=== PATIENT | female | born 1990 | race Caucasian/White ===

== ENCOUNTER → 2024-04-30 | Outpatient (CLI) | payer BC ==
[2024-04-30 13:35] LABS: HEMATOCRIT 36.5 % (36.0-47.0); HEMOGLOBIN 12.2 g/dl (12.0-15.5); MEAN CORPUSCULAR HEMOGLOBIN 28.8 pg (27.0-33.0); MEAN CORPUSCULAR HGB CONC 33.4 g/dl (32.0-36.5); MEAN CORPUSCULAR VOLUME 86.3 fl (80.0-96.0); PLATELET COUNT, AUTOMATED 336 10^3/uL (150-450); RED BLOOD COUNT 4.23 10^6/uL (4.00-5.40)
[2024-04-30 13:41] LABS: LDH LACTATE DEHYDROGENASE 140 U/L (120-246)
[2024-04-30 13:42] LABS: ALT/SGPT 13 U/L (7.0-40); AST/SGOT < 8 U/L (<34); BILIRUBIN,TOTAL 0.6 MG/DL (0.3-1.2); GLOMERULAR FILTRATION RATE > 60.0 (>60)
[2024-04-30 14:13] LABS: CREATININE,RANDOM URINE 27.2 MG/DL; TOTAL PROTEIN,RANDOM URINE < 6.0 MG/DL (0.0-14.0)
[2024-04-30 14:16] LABS: HIV 1&2 SCREEN NEGATIVE (NEGATIVE)
[2024-04-30 14:24] LABS: HEPATITIS C VIRUS ABY INDEX 0.13 INDEX (<0.8)
[2024-04-30 14:28] LABS: URIC ACID 3.3 MG/DL (3.1-7.8)
[2024-04-30 14:57] LABS: Trichomonas vaginalis (AMP) NOT DETECTED (NEGATIVE)
[2024-04-30 15:21] LABS: GC DNA AMPLIFICATION NEGATIVE (NEGATIVE)
== END ==
LOC: M PLALAB 09:50
PROVIDERS: ATTEND Nurse Practitioner Family
DX: Z34.80 Encounter for supervision of other normal pregnancy, unspecified trimester (principal)

== ENCOUNTER → 2024-05-15 | Outpatient (CLI) | payer BC | LOC: M PLALAB 08:28 | PROVIDERS: ATTEND Nurse Practitioner Family | DX: Z34.80 Encounter for supervision of other normal pregnancy, unspecified trimester (principal) ==

== ENCOUNTER → 2024-07-15 | Outpatient (CLI) | payer BC | LOC: M WHC 09:54 | PROVIDERS: ATTEND Nurse Practitioner Family | DX: Z34.02 Encounter for supervision of normal first pregnancy, second trimester (principal) ==

== ENCOUNTER 2024-10-23 20:51 | Outpatient (CLI) | payer BC ==
[~2024-10-23] VITALS: Ht 162.6 cm; Wt 101.7 kg
[2024-10-23] MEDS ORDERED: OMEP10CASR PO (21:02)
[2024-10-23] MEDS ORDERED: PRENTAB9 PO (21:02)
[2024-10-23 21:03] VITALS: BP 130/71
[2024-10-23] MEDS ORDERED: HOME MED LIST COMPLETE! XX SCH (21:05)
== END 2024-10-23 21:42 | disposition home or self-care (01) ==
LOC: M LDO 20:51
PROVIDERS: ATTEND Advanced Practice Midwife
DX: O36.8130 Decreased fetal movements, third trimester, not applicable or unspecified (principal); O99.343 Other mental disorders complicating pregnancy, third trimester; F32.A Depression, unspecified; Z3A.36 36 weeks gestation of pregnancy
CPT/HCPCS: 59025; G0463

== ENCOUNTER → 2024-10-24 | Outpatient (REF) | payer BC ==
[~2024-10-24] MED LIST: OMEP10CASR PO; PRENTAB9 PO
== END ==
LOC: M LAB REF 12:44
PROVIDERS: ATTEND Obstetrics & Gynecology
DX: Z36.85 Encounter for antenatal screening for Streptococcus B (principal); Z3A.36 36 weeks gestation of pregnancy

== ENCOUNTER 2024-11-20 15:31 | Inpatient (IN) | payer BC ==
[~2024-11-20] VITALS: Ht 162.6 cm; Wt 106.1 kg
[2024-11-20 15:53] VITALS: BP 140/76
[2024-11-20 16:04] VITALS: BP 132/70
[2024-11-20 16:16] VITALS: BP 144/81
[2024-11-20 16:27] VITALS: BP 130/72
[2024-11-20 16:38] LABS: PLATELET COUNT, AUTOMATED 254 10^3/uL (150-450)
[2024-11-20 16:47] VITALS: BP 131/78
[2024-11-20 16:59] LABS: LDH LACTATE DEHYDROGENASE 167 U/L (120-246)
[2024-11-20 17:00] LABS: ALT/SGPT 19 U/L (7.0-40); AST/SGOT 18 U/L (<34); CREATININE FOR GFR 0.47 MG/DL (0.55-1.30); GLOMERULAR FILTRATION RATE > 90.0 (>60)
[2024-11-20 17:07] LABS: TOTAL PROTEIN,RANDOM URINE 13.8 MG/DL (0.0-14.0)
[2024-11-20 17:35] LABS: HEPATITIS C VIRUS ABY INDEX < 0.02 INDEX (<0.8)
[2024-11-20 17:37] LABS: HIV 1&2 SCREEN NEGATIVE (NEGATIVE)
[2024-11-20] MEDS ORDERED: OXYTOCIN INJ 10UNITS/ML 1ML VIAL IM PRN (18:15)
[2024-11-20] MEDS ORDERED: CARBOPROST TROMETHAMINE 250 MCG/ML AMP IM PRN (18:15)
[2024-11-20] MEDS ORDERED: LIDOCAINE 1% MDV 20 ML VIAL INFIL PRN (18:15)
[2024-11-20] MEDS ORDERED: OXYTOCIN DRIP 30 UNITS in IV 1 EA IV PRN (18:15)
[2024-11-20] MEDS ORDERED: TRANEXAMIC ACID INJection 1,000 MG in NS 100 ML IV PRN (18:15)
[2024-11-20 19:21] VITALS: BP 137/63
[2024-11-20] MEDS: miSOPROStol 50 MCG 1/2 TABLET PO SCH (19:23)
[2024-11-20] MEDS ORDERED: PEN G POT 3,000,000 UNIT/50 ML 3,000,000 UNIT in IV 1 EA IV SCH (22:15)
[2024-11-21] VITALS (43 sets, daily range): BP systolic 93–168; BP diastolic 51–93
[2024-11-21] MEDS ORDERED: miSOPROStol 50 MCG 1/2 TABLET As Ordered ONE (03:30)
[2024-11-21] MEDS: OXYTOCIN DRIP 30 UNITS in IV 1 EA IV SCH (12:21)
[2024-11-21] MEDS: PENICILLIN G POTASSIUM 5 MU IV 5 MU in DEXTROSE 5% (D5W) MINI-BAG PLU 100 ML IV STA ×2 (13:40→13:41)
[2024-11-21] MEDS: PEN G POT 3,000,000 UNIT/50 ML 3,000,000 UNIT in IV 1 EA IV SCH (17:40)
[2024-11-21] MEDS: LR 1,000 ML IV SCH (17:45)
[2024-11-21] MEDS ORDERED: NALOXONE INJ 0.4 MG/1 ML VIAL IV PRN (21:25)
[2024-11-21] MEDS ORDERED: diphenhydrAMINE 50 MG/ML VIAL IV PRN (21:25)
[2024-11-21] MEDS ORDERED: EPIDURAL/PCA KEYS XX PRN (21:25)
[2024-11-21] MEDS: FENTANYL/ROPIVACAINE/NACL BAG 100 ML EPIDURAL SCH (21:26)
[2024-11-22] VITALS (27 sets, daily range): BP systolic 88–138; BP diastolic 49–81; TEMP 97.3; O2SAT 95–97
[2024-11-22] MEDS: LR 500 ML IV PRN (03:36)
[2024-11-22] MEDS: ONDANSETRON 4MG 2ML VIAL IV PRN (08:20)
[2024-11-22] MEDS: BICITRA 30 ML SOLN UDC PO ONE (09:12)
[2024-11-22] MEDS: ceFAZolin SODIUM 2 GM in DEXTROSE 5% (D5W) ADV/MINI-BAG 50 ML IV ONE (09:12)
[2024-11-22] MEDS: AZITHROMYCIN INJ 500 MG, VIAL MATE ADAPTER 1 EACH in NS 250 ML IV ONE (09:12)
[2024-11-22] MEDS ORDERED: ONDANSETRON 4MG 2ML VIAL As Ordered ONE (09:47)
[2024-11-22] MEDS ORDERED: dexAMETHasone 4 MG/ML 1 ML VIAL As Ordered ONE (09:47)
[2024-11-22] MEDS ORDERED: MORPHINE PRES-FREE INJ 10 MG/10 ML VIAL As Ordered ONE (09:48)
[2024-11-22] MEDS ORDERED: LIDOCAINE 2% W/EPINEPHrine 20 ML VIAL **PRES FREE As Ordered ONE (09:49)
[2024-11-22] MEDS ORDERED: ACETAMINOPHEN 1000MG/100ML IV BAG As Ordered ONE (09:50)
[2024-11-22] MEDS ORDERED: KETOROLAC 30 MG/ML 1 ML VIAL As Ordered ONE (10:41)
[2024-11-22] MEDS ORDERED: OXYTOCIN 30UNITS IN 0.9% NaCl 500ML IV BAG As Ordered ONE (10:54)
[2024-11-22] MEDS ORDERED: OXYTOCIN INJ 10UNITS/ML 1ML VIAL As Ordered ONE (10:54)
[2024-11-22 10:57] LABS: CORD GAS ABE V -2.5; CORD GAS HCO3 V 22.1 MMOL/L; CORD GAS O2 SAT V 79.4 %; CORD GAS PCO2 V 38.3 mmHg; CORD GAS PH V 7.38 UNITS; CORD GAS PO2 V 36.0 mmHg; CORD GAS SBC V 21.9 MMOL/L; CORD GAS TCO2 V 23.3 MMOL/L
[2024-11-22 10:59] LABS: CORD GAS ABE A -1.7; CORD GAS HCO3 A 26.1 MMOL/L; CORD GAS O2 SAT A 65.4 %; CORD GAS PCO2 A 56.4 mmHg; CORD GAS PH A 7.283 UNITS; CORD GAS PO2 A 29.3 mmHg; CORD GAS SBC A 22.2 MMOL/L; CORD GAS TCO2 A 27.8 MMOL/L
[2024-11-22] MEDS ORDERED: ANUSOL HC CREAM 30 GM TOP PRN (11:10)
[2024-11-22] MEDS ORDERED: PERCOCET 5MG/325MG TAB PO PRN ×2 (11:10)
[2024-11-22] MEDS ORDERED: METHYLERGONOVINE MALEATE 0.2 MG/ML 1 ML VIAL IM PRN (11:10)
[2024-11-22] MEDS ORDERED: CALCIUM CARBONATE 500 MG CHEW U/D PO PRN (11:10)
[2024-11-22] MEDS ORDERED: MORPHINE 4 MG/ML 1 ML VIAL IV PRN (11:10)
[2024-11-22] MEDS ORDERED: ONDANSETRON 4MG 2ML VIAL IV PRN ×3 (11:10→11:35)
[2024-11-22] MEDS ORDERED: SIMETHICONE 80MG CHEW TAB PO PRN (11:10)
[2024-11-22] MEDS ORDERED: IBUP80TA PO (11:12)
[2024-11-22] MEDS ORDERED: COLA100C5 PO (11:12)
[2024-11-22] MEDS ORDERED: PERCOCET PO (11:12)
[2024-11-22] MEDS: OXYTOCIN DRIP 30 UNITS in IV 1 EA IV SCH (11:29)
[2024-11-22] MEDS ORDERED: diphenhydrAMINE 50 MG/ML VIAL IV PRN (11:35)
[2024-11-22] MEDS ORDERED: **NOTE PATIENT COMMENT** MISC XX SCH (11:35)
[2024-11-22] MEDS ORDERED: NALOXONE INJ 0.4 MG/1 ML VIAL IV PRN ×2 (11:35)
[2024-11-22] MEDS: LR 1,000 ML IV SCH ×2 (11:35→12:03)
[2024-11-22] MEDS: SLF 3 ML SYR IV SCH (11:35)
[2024-11-22] MEDS: KETOROLAC 30 MG/ML 1 ML VIAL IV SCH (17:05)
[2024-11-22] MEDS: DOCUSATE SODIUM 100 MG CAPSULE PO SCH (22:58)
[2024-11-23] MEDS: RHOGAM 300MCG (1500IU) INJ IM SCH (01:30)
[2024-11-23 02:05] VITALS: BP 112/58; O2SAT 18; O2SAT 97
[2024-11-23 06:02] VITALS: BP 114/63; O2SAT 98
[2024-11-23] MEDS: PRENATAL VITAMINS CHEWABLE TABLET PO SCH (07:53)
[2024-11-23 08:44] LABS: PLATELET COUNT, AUTOMATED 203 10^3/uL (150-450)
[2024-11-23 10:00] VITALS: BP 116/60; O2SAT 98
[2024-11-23] MEDS: IBUPROFEN 800 MG TAB PO SCH (12:38)
[2024-11-23 14:00] VITALS: BP 121/57; O2SAT 93
[2024-11-23 18:00] VITALS: BP 131/75; O2SAT 97
[2024-11-23] MEDS: MEASLES,MUMPS,RUBELLA VACCINE INJ (MMR-II) SC.IMMUN ONE (19:13)
[2024-11-23 21:58] VITALS: BP 128/62; O2SAT 98
[2024-11-24 02:04] VITALS: BP 128/69; O2SAT 98
[2024-11-24 06:15] VITALS: BP 125/66; O2SAT 98
[2024-11-24] MEDS: ACETAMINOPHEN 500 MG TAB PO PRN (08:57)
== END 2024-11-24 12:43 | disposition home or self-care (01) | DRG 540 ==
LOC: M LDO 15:31 → M LDI 18:21 → M OBS 11-22 13:00
PROVIDERS: ADMIT Advanced Practice Midwife; ATTEND Obstetrics & Gynecology
PROC: 3E0P7GC Introduction of Other Therapeutic Substance into Female Reproductive, Via Natural or Artificial Opening (ICD-10-PCS; 2024-11-20)
PROC: 10D00Z1 Extraction of Products of Conception, Low, Open Approach (ICD-10-PCS; principal; 2024-11-22 09:49)
DX: O13.4 Gestational [pregnancy-induced] hypertension without significant proteinuria, complicating childbirth (principal); O64.0XX0 Obstructed labor due to incomplete rotation of fetal head, not applicable or unspecified; Z3A.40 40 weeks gestation of pregnancy; Z79.899 Other long term (current) drug therapy; Z37.0 Single live birth